=== PATIENT | male | born 1940 | race Caucasian/White ===

== ENCOUNTER → 2018-12-29 16:07 | Outpatient (CLI) | payer MEDICARE, SELFPAY ==
--- NOTE | 2018-12-29 16:13 | MRI_ITS ---
STUDY: MRI CERVICAL SPINE WITHOUT CONTRAST REASON FOR EXAM: Male, 78 years old. Stenosis TECHNIQUE: Standardized fat and water weighted pulse sequences were obtained in the sagittal and axial planes. COMPARISON: None FINDINGS: Craniocervical junction and cervical spine are intact and aligned with normal marrow and paraspinal soft tissues. There are mild age-appropriate disc and endplate degenerative changes. There is mild spondylotic cord compression at C3-C4 and C5-C6. Remainder of the levels have patent canal. There is no high-grade foraminal stenosis. Spinal cord is normal in size and signal with minor flattening of the compressing levels. MRI/Spine Cervical (Routine) IMPRESSION: 1. Mild cord compression at C3-C4 and C5-C6. Electronically Signed: Ngoc Hebert, at 18:02 EDT Tel , Service support ,
== END ==
PROVIDERS: Family Provider Family Medicine; PCP Family Medicine; Referring Provider Psychiatry & Neurology Neurology; Visit Provider Psychiatry & Neurology Neurology
DX: M48.02 Spinal stenosis, cervical region (principal)
CPT/HCPCS: 72141

== ENCOUNTER 2019-03-04 17:33 | Emergency (ER) | payer MEDICARE, SELFPAY ==
[2019-01-21 14:16] VITALS: BMI 28.7
[2019-03-04 17:37] VITALS: BP 142/100; PULSE 56; RESP 17; TEMP 36.1; O2SAT 99; BMI 27.3
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
== END 2019-03-04 18:25 | disposition home or self-care (01) ==
PROVIDERS: Emergency Provider Emergency Medicine; Family Provider Family Medicine; PCP Family Medicine
DX: S40.021A Contusion of right upper arm, initial encounter (principal); V43.52XA Car driver injured in collision with other type car in traffic accident, initial encounter; Y92.410 Unspecified street and highway as the place of occurrence of the external cause; E78.5 Hyperlipidemia, unspecified; I10 Essential (primary) hypertension; I25.10 Atherosclerotic heart disease of native coronary artery without angina pectoris; K21.9 Gastro-esophageal reflux disease without esophagitis; Z87.891 Personal history of nicotine dependence; Z90.49 Acquired absence of other specified parts of digestive tract; D69.6 Thrombocytopenia, unspecified
CPT/HCPCS: 99282

== ENCOUNTER 2021-12-18 15:48 | Emergency (ER) | payer MEDICARE, SELFPAY ==
[2021-12-18 15:49] VITALS: BP 137/86; PULSE 83; RESP 16; TEMP 37.2; O2SAT 98; BMI 28.1
--- NOTE | 2021-12-18 16:05 | EKG12_ITS ---
Test Reason : CP Blood Pressure : / mmHG Vent. Rate : 078 BPM Atrial Rate : 078 BPM P-R Int : 140 ms QRS Dur : 100 ms QT Int : 396 ms P-R-T Axes : 000 188 156 degrees QTc Int : 451 ms Suspect arm lead reversal, interpretation assumes no reversal Sinus rhythm with occasional Premature ventricular complexes Right superior axis deviation Inferior infarct , possibly acute ACUTE AL / STEMI Consider right ventricular involvement in acute inferior infarct Abnormal ECG Recommend Repeat ECG Confirmed by VI FLYNN, NATE ([id number]), newspaper or periodical editor PERRI CHACON ([id number]) on 12/20/2021 10:59:04 AM Referred By: YONG Confirmed By:NATE LEBRON MD
[2021-12-18 16:09] VITALS: RESP 18
[2021-12-18] MEDS: Aspirin 81 MG TAB.CHEW 324 MG PO (16:09)
--- NOTE | 2021-12-18 16:11 | RAD_ITS ---
STUDY: X-RAY CHEST REASON FOR EXAM: Male, 81 years old. chest pain TECHNIQUE: AP portable COMPARISON: None. FINDINGS: The lungs are clear and expanded. There is no demonstrated pleural abnormality. Normal size heart. Normal mediastinum and kelsea. Normal visualized pulmonary arteries. Normal visualized aortic arch and descending thoracic aorta. Dorsal spine demonstrates degenerative change. Normal visualized ribs, clavicles, and shoulders. Small hiatal hernia is noted There is no demonstrated abnormality of the visualized soft tissue structures of the upper abdomen. RAD/Chest 1 View (Portable) IMPRESSION: No acute cardiopulmonary pathology. Electronically Signed: Wood Nascimento MD at 16:37 EDT ,
--- NOTE | 2021-12-18 16:11 | EX.ED.DYSGE1 ---
HPI History of Present Illness Chief Complaint: General Illness Informant: patient Onset/Context/Timing Onset: Today and Yesterday Context: Gradual Onset Timing: Continuous Current Severity: Mild Maximum Severity: Mild Narrative Narrative: 81-year-old male history of prior inferior [place] . Also history of reflux, stomach cancer. Denies any history of DVT or PE. No recent travel, surgery or immobilization. No leg pain or swelling. No hemoptysis. Pain is not pleuritic. Describes the pain as a tightness across the anterior chest. Does not radiate to his arm, neck or jaw. Not associated with diaphoresis or shortness of breath. He has had nausea and vomiting x2. Pain began yesterday around 4 PM. He has had no recent exertional chest pain or exertional dyspnea. Prior similar symptoms: Yes Recent Illness/Hospitalization: No PFSH [facility] Medical History (Updated 12/18/21 @ 18:[address] 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) Premature ventricular contractions Thrombocytopenia Home Medications simvastatin 40 mg tablet 40 mg PO QHS 05/29/14 [History Last Taken 12/04/16 22:00 40 MG] latanoprost 0.005 % eye drops 1 drp EACH EYE QHS 12/06/16 [History Last Taken 12/05/16 22:00 1 DROP] cyclobenzaprine 5 mg tablet 5 mg PO QHS 01/17/19 [History Last Taken Unknown] hydroxyzine HCl 25 mg tablet 25 mg PO Q6H PRN 01/17/19 [History Last Taken Unknown] lisinopril 20 mg tablet 20 mg PO DAILY 01/17/19 [History Last Taken Unknown] nitroglycerin 0.4 mg sublingual tablet 0.4 mg sublingual Q5-15M 01/17/19 [History Last Taken Unknown] omeprazole 40 mg capsule,delayed release 40 mg PO DAILY 01/17/19 [History Last Taken Unknown] oxycodone 5 mg tablet 5 mg PO Q4H PRN PRN Moderate Pain (pain scale 4-5) 01/17/19 [History Last Taken Unknown] zolpidem 5 mg tablet (Ambien) 5 mg PO QHS 01/17/19 [History Last Taken Unknown] Allergy/AdvReac Type Severity Reaction Status Date / Time vicryl sutures AdvReac unknown Uncoded 12/18/21 15:49 Surgical History History of cholecystectomy History of left heart catheterization (1994) Social History Smoking Status: Never smoker ROS ROS ED ROS Narrative Denies recent illness of nausea and vomiting. Review of Systems ROS Unobtainable: Denies due to encephalopathy Constitutional Constitutional ED: Denies chills or fever(s) Eyes Eyes: Denies blurry vision ENT ENT ED: Denies ear pain Cardiovascular Cardiovascular: Reports chest pain; Denies palpitations or racing heartbeat Respiratory/Chest Respiratory/Chest: Denies cough or dyspnea Gastrointestinal Gastrointestinal: Reports nausea and vomiting; Denies abdominal pain, constipation, diarrhea or melena Genitourinary Genitourinary ED: Denies dysuria or hematuria Musculoskeletal Musculoskeletal: Denies arthralgias Integumentary Denies abscess Neurologic Neurologic: Denies headache(s) Psychiatric Psychiatric: Denies anxiety or depression Endocrine Endocrinology: Denies cold intolerance Hematologic/Lymphatic Hematologic/Lymphatic: Reports none Allergic/Immunologic Allergic/Immunologic ED: Denies mouth swelling or tongue swelling EXAM Physical Exam Narrative Exam Narrative: Sign 11-year-old male no acute distress. Vital signs stable afebrile. Pulse ox 90% on room air no signs hypoxia. H EENT exam unremarkable. Neck nontender no JVD. Lungs clear to auscultation bilaterally. Heart regular rhythm rate about 80 no murmur. Chest were nontender. Abdomen soft nontender. Moving all 4 extremities. Calves nontender that edema or cords. Equal symmetrical radial pulses. Neurologically is awake and alert with no focal motor deficits. Const Vital Signs: 12/18/21 15:49 12/18/21 16:09 12/18/21 16:11 Temperature 98.9 F Temperature Source Temporal Pulse Rate 83 Respiratory Rate 16 18 Respiratory Effort Normal Non-Labored Blood Pressure 137/86 H Blood Pressure Mean 103 Pulse Ox 98 Oxygen Delivery Method Room Air 12/18/21 18:14 Temperature Temperature Source Pulse Rate 69 Respiratory Rate 12 Respiratory Effort Blood Pressure 141/76 H Blood Pressure Mean 97 Pulse Ox 96 Oxygen Delivery Method Room Air Positive well nourished and well developed; Negative for obese, cachectic, contractures or unkempt General Appearance ED: well developed and NAD; Negative for unkempt, cachectic, contractures, cyanotic or diaphoretic Nutritional Appearance: Negative for cachectic or obese HEENT Reports moist mucous membranes; Denies dry mucous membranes Negative for trauma Mouth ED: No dry mucous membranes Mouth: No dry mucous membranes Eyes PERRL and EOMs intact bilaterally General Eye ED: Negative for pale conjunctiva or scleral icterus Neck no lymphadenopathy, supple and no JVD General: Negative for tenderness Lymph Lymphatic: Negative for other Chest Wall inspection of chest normal and palpation of chest normal Chest: Negative for other Resp normal respiratory effort and clear to auscultation bilaterally Effort and Inspection: Negative for retractions Auscultation: Negative for rales, rhonchi or wheezes Cardio regular rate, regular rhythm, S1 normal heart sound, S2 normal heart sound and no murmurs Palpation: Negative for palpable S3 Rate: Negative for bradycardia Rhythm: Negative for abnormal rhythm GI normal to inspection, nondistended, normoactive bowel sounds, non-tender, non-distended and no masses Inspection: Negative for abdominal distention Auscultation: normoactive bowel sounds Palpation: soft; Negative for tender or guarding Back/Spine no CVA tenderness General Back: Negative for CVA tenderness Cervical Spine: Negative for cervical spine tenderness Thoracic Spine / Upper Back: Negative for thoracic spinal tenderness Lumbar Spine / Lower Back: Negative for lumbar spinal tenderness Extremity normal to inspection General Extremety ED: Negative for edema or tenderness General Extremity: Negative for edema Neuro oriented x3 and CN's II-XII intact bilaterally Sensorium / Orientation: alert; Negative for orientation impaired Motor Exam: strength 5/5 throughout Psych Appearance: Negative for unkempt Attitude: No agitated Mood & Affect: Negative for depressed or anxious Skin no rashes or lesions noted and no wounds General Skin Exam: Negative for elasticity normal Lesions: No lesion noted Rashes: No rashes noted Trauma: Negative for abrasion Wounds: Negative for wounds noted MDM MDM MDM Narrative Medical decision making narrative: 71-year-old with nonexertional chest pain. Exam benign. Not reproducible. Undergo cardiac work-up. Cardiac etiology versus reflux versus other causes of chest pain. Clinically has no risk factors or prior history of DVT or PE. Repeat exam patient doing well. This pain was nonexertional. He will be given a GI cocktail and Protonix. Second troponin is pending. He will be discharged home with outpatient follow-up. Continue his reflux medications at home. Lab Data Attestation: I reviewed the patient's lab results. Lab results narrative: CBC White count 10.9 H&H 14.5 and 44. Platelets slightly low 130,000. Electrolytes potassium 5.4 gap is 6 BUN and creatinine are 21.3. Troponin is normal at 14. Labs: Laboratory Results - last 24 hr 12/18/21 12/18/21 16:15 16:15 WBC 10.9 RBC 4.38 L Hgb 14.5 Hct 44.1 MCV 100.7 H MCH 33.1 H MCHC 32.9 RDW Std Deviation 45.4 H RDW Coeff of Corinne 12.2 Plt Count 130 L MPV 9.5 Immature Gran % (Auto) 0.500 Neut % (Auto) 78.3 H Lymph % (Auto) 13.3 L [place] % (Auto) 7.4 Eos % (Auto) 0.3 Baso % (Auto) 0.2 Absolute Neuts (auto) 8.6 H Absolute Lymphs (auto) 1.45 Nucleated RBC % 0 Sodium 139 Potassium 5.4 H Chloride 108 H Carbon Dioxide 25.0 Anion Gap 6 BUN 28 H Creatinine 1.30 Estim Creat Clear Calc 44.58 Est GFR (MDRD) Af Amer 68 Est GFR (MDRD) Non-Af 57 L BUN/Creatinine Ratio 21.5 H Glucose 139 H Calcium 9.5 Troponin I High Sens 14 Radiography Chest X-Ray - ED: 1 View, Read by ED Physician, Normal, Heart, Lungs, Mediastinum, Bony Structures, No Acute Disease and Chronic Changes Diagnostic Testing: Clinical Impression(s) from Imaging Studies Chest X-Ray 12/18/21 16:11 IMPRESSION: No acute cardiopulmonary pathology. Electronically Signed: Wood Nascimento MD at 16:37 EDT , Chest x-ray, portable, single view interpreted myself and radiologist shows no acute abnormality. Patient normal cardiac silhouette. May be normal mediastinum. Rhythm Strip Rhythm Strip: Sinus Rhythm Rate: 78 Ectopy: None EKG Initial EKG: Attestation: I personally reviewed and interpreted this EKG as follows: Interpretation: Sinus Rhythm and No Acute Injury Pattern Comments: Normal sinus rhythm rate of 78. There is minimal ST elevation in leads II, III, aVF which has been seen on prior EKG from November 2016. Patient has a history of a prior [place]. There is no reciprocal changes. I do not think this is acute. This was seen on a prior EKG. Prior EKG tracings: available for review Prior: Unchanged Discharge Plan Triage Chief Complaint: General Illness ED Provider: Denny Sepulveda Dx/Rx/DC Orders Clinical Impression: Chest pain, History of [place] (myocardial infarction), Hx of esophageal reflux Instructions: ED Chest Pain, Uncertain Cause Prescriptions: No Action lisinopril 20 mg tablet 20 mg PO DAILY hydroxyzine HCl 25 mg tablet 25 mg PO Q6H PRN zolpidem [Ambien] 5 mg tablet 5 mg PO QHS cyclobenzaprine 5 mg tablet 5 mg PO QHS nitroglycerin 0.4 mg tablet, sublingual 0.4 mg SUBLINGUAL Q5-15M omeprazole 40 mg capsule,delayed release(DR/EC) 40 mg PO DAILY oxycodone 5 mg tablet 5 mg PO Q4H PRN PRN (Reason: Moderate Pain (pain scale 4-5)) Label Comments: pain simvastatin 40 MG tablet 40 mg PO QHS Label Comments: cholesterol latanoprost 1 DROP bottle 1 drp EACH EYE QHS Label Comments: EYE DROPS Primary Care Provider: Luis Antonio Sheehan Referrals: Luis Antonio Sheehan MD [Primary Care Provider] - 3-5 Days if not improving Activity Restrictions/Additional Instructions: Use your reflux medication at home. Follow-up with your doctor if not improving or return if feeling worse. Your labs, x-ray and EKG were unremarkable. Disposition Disposition: Home, Self Care
[2021-12-18 16:27] LABS: Absolute Lymphocyte Count 1.45 X10^3/uL (0.83-4.51); Absolute Neutrophil Count 8.6 X10^3/uL (2.0-7.7); Basophil# 0.02 X10^3/uL; Basophil% 0.2 % (0-1); Eosinophil# 0.03 X10^3/uL; Eosinophils% 0.3 % (0-5); Hematocrit 44.1 % (40-54); Hemoglobin 14.5 g/dL (13.0-16.5); Lymphocyte # 1.45 X10^3/ul (0.83-4.51); Lymphocyte % 13.3 % (19-41); Mean Corp Hgb Conc 32.9 g/dL (32-36); Mean Corpuscular Hgb 33.1 pg (27.0-32.0); Mean Corpuscular Volume 100.7 fL (80-94); Mean Platelet Vol. 9.5 fl (6.2-12.0); Monocyte# 0.81 X10^3/uL; Monocyte% 7.4 % (0-10); NRBC Flagged by Analyzer 0 % (0-5); Neutrophil # 8.55 X10^3/uL (2.7-7.7); Neutrophil % 78.3 % (47-70); Platelet Count 130 K/mm3 (150-450); RBC Distribution Width CV 12.2 % (11.6-14.6); RBC Distribution Width SD 45.4 fl (35.1-43.9); Red Blood Count 4.38 M/mm3 (4.6-6.2); White Blood Count 10.9 K/mm3 (4.4-11.0)
[2021-12-18 16:48] LABS: Anion Gap 6 (5-15); BUN 28 mg/dL (7-18); BUN/Creat Ratio 21.5 RATIO (10-20); Calcium,Total 9.5 mg/dL (8.5-10.1); Chloride 108 mmol/L (98-107); EST Glomerular Filtration Rate 57 mL/min (>60); Est Glom Filt Rate - Afr Amer 68 mL/min (>60); Estimated Creatinine Clearance 44.58 ml/min; Glucose 139 mg/dL (74-106); Potassium 5.4 mmol/L (3.5-5.1); Sodium Level 139 mmol/L (136-145); Troponin-I HS (w/2H Reflex) 14 pg/mL (3.0-78.0)
[2021-12-18 18:14] VITALS: BP 141/76; PULSE 69; RESP 12; O2SAT 96
[2021-12-18 18:18] LABS: Reflex Troponin-HS? (from REC) Y
[2021-12-18] MEDS: Pantoprazole Sodium 40 MG Tablet PO (18:41)
[2021-12-18] MEDS: Mag Hydrox/Al Hydrox/Simeth 30 ML UDC PO (18:41)
[2021-12-18 18:44] VITALS: BP 111/74
[2021-12-18 19:07] LABS: Troponin-I HS 12 pg/mL (3.0-78.0)
== END 2021-12-18 18:44 | disposition home or self-care (01) ==
PROVIDERS: Emergency Provider Emergency Medicine; PCP Family Medicine; Visit Provider Emergency Medicine
DX: R07.9 Chest pain, unspecified (principal); I25.10 Atherosclerotic heart disease of native coronary artery without angina pectoris; I25.2 Old myocardial infarction
CPT/HCPCS: 71045; 80048; 84484; 85025; 93005; 99285; A4216

== ENCOUNTER 2024-09-11 17:59 | Emergency (ER) | payer MEDICARE, SELFPAY ==
[2024-09-11 18:00] VITALS: BP 135/84; PULSE 84; RESP 16; TEMP 36.4; O2SAT 98; BMI 24.8
--- NOTE | 2024-09-11 18:30 | RAD_ITS ---
PROCEDURE: CHEST 1 VIEW (PORTABLE) 09/11/2024 REASON FOR EXAM: CHEST PAIN TECHNIQUE: Frontal view of the chest. COMPARISON: Chest radiograph 12/18/2021. FINDINGS: Hardware: None. Heart: The heart size is normal. Lungs: No focal consolidation, pleural effusion or pneumothorax. Bones: Degenerative changes are identified within the thoracic spine. RAD/Chest 1 View (Portable) IMPRESSION: Negative Chest. Reading Location: [id number]
[2024-09-11 18:40] LABS: Absolute Lymphocyte Count 2.68 X10^3/uL (0.83-4.51); Absolute Neutrophil Count 5.1 X10^3/uL (2.0-7.7); Basophil# 0.04 X10^3/uL; Basophil% 0.4 % (0-1); Eosinophil# 0.25 X10^3/uL; Eosinophils% 2.7 % (0-5); Hemoglobin 12.1 g/dL (13.0-16.5); Lymphocyte # 2.68 X10^3/ul (0.83-4.51); Lymphocyte % 29.5 % (19-41); Mean Corp Hgb Conc 33.6 g/dL (32-36); Mean Corpuscular Hgb 32.3 pg (27.0-32.0); Mean Platelet Vol. 9.3 fl (6.2-12.0); Monocyte# 0.97 X10^3/uL; Monocyte% 10.7 % (0-10); NRBC Flagged by Analyzer 0 % (0-5); Neutrophil # 5.14 X10^3/uL (2.7-7.7); Neutrophil % 56.5 % (47-70); Platelet Count 175 K/mm3 (150-450); RBC Distribution Width CV 12.4 % (11.6-14.6); RBC Distribution Width SD 43.1 fl (35.1-43.9); Red Blood Count 3.75 M/mm3 (4.6-6.2); White Blood Count 9.1 K/mm3 (4.4-11.0)
[2024-09-11] MEDS: Aspirin 81 MG TAB.CHEW 324 MG PO (18:41)
[2024-09-11 18:56] LABS: Anion Gap 13 (5-15); BUN 28 mg/dL (4-19); BUN/Creat Ratio 23.4 RATIO (10-20); Calcium,Total 9.4 mg/dL (7.6-11.0); Carbon Dioxide 19.4 mmol/L (21.0-32.0); Chloride 103 mmol/L (98-108); Creatinine, Serum 1.19 mg/dL (0.70-1.20); EST Glomerular Filtration Rate 61 (>60); Glucose 135 mg/dL (70-99); Potassium 4.3 mmol/L (3.3-5.1); Sodium Level 135 mmol/L (133-145); Troponin T High Sensitivity 43 ng/L (<=22)
--- NOTE | 2024-09-11 18:56 | ED.VIS.CHEST ---
HPI History of Present Illness Chief Complaint: Chest Pain Informant: patient and spouse/S.O. Narrative Narrative: Waxing waning chest pressure for last 4 to 5 weeks. No dyspnea no nausea no diaphoresis. Reports abdominal cramping weight loss for last 5 weeks. History of gastric cancer 2017 cannot tell me the specific type he was seen at [facility] Dr. Tipton who retired. He had radiation and chemotherapy at that time was told he was cancer free. Denies any black or bloody stools. Denies vomiting or diarrhea. Denies recent travel or surgeries. No history of PE or DVT. He states he had a heart attack in the 1980s reported had a heart catheter noting collaterals. No intervention. Occasional cough. Hypertension hyperlipidemia. CVD Risk Factors: Positive for Hypertension and Hypercholesterolemia; Negative for Diabetes, Family History 1' </=55 or Smoking PE Risk Factors: Positive for Cancer; Negative for Recent Travel/Surgery, Recent Immobilization or Prior DVT or PE [facility] Medical History (Updated 09/11/24 @ 21:[address] 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) Essential (primary) hypertension HLD (hyperlipidemia) Home Medications ?Medication ?Instructions ?Recorded ?Last Taken ?Type simvastatin 40 mg tablet 40 mg PO QHS 05/29/14 12/04/16 22:00 History 40 MG latanoprost 0.005 % eye drops 1 drp EACH EYE QHS 12/06/16 12/05/16 22:00 History 1 DROP cyclobenzaprine 5 mg tablet 5 mg PO QHS 01/17/19 Unknown History hydroxyzine HCl 25 mg tablet 25 mg PO Q6H PRN 01/17/19 Unknown History lisinopril 20 mg tablet 20 mg PO DAILY 01/17/19 Unknown History nitroglycerin 0.4 mg sublingual 0.4 mg sublingual Q5-15M 01/17/19 Unknown History tablet omeprazole 40 mg capsule,delayed 40 mg PO DAILY 01/17/19 Unknown History release oxycodone 5 mg tablet 5 mg PO Q4H PRN PRN Moderate Pain 01/17/19 Unknown History (pain scale 4-5) zolpidem 5 mg tablet (Ambien) 5 mg PO QHS 01/17/19 Unknown History Allergy/AdvReac Type Severity Reaction Status Date / Time suture AdvReac NEEDS Verified 09/11/24 18:01 FOLLOW-UP Surgical History History of left heart catheterization (1994) History of cholecystectomy Social History Smoking Status: Never smoker ROS ROS ED Constitutional Constitutional ED: Reports weight loss; Denies chills, fever(s) or sweats ENT ENT ED: Denies sore throat Cardiovascular Cardiovascular: Reports chest pain; Denies leg edema, palpitations or racing heartbeat Respiratory/Chest Respiratory/Chest: Denies cough, dyspnea or dyspnea on exertion Gastrointestinal Gastrointestinal: Reports abdominal pain; Denies diarrhea, nausea or vomiting Genitourinary Genitourinary ED: Denies dysuria, hematuria or urinary frequency Musculoskeletal Musculoskeletal: Denies back pain, extremity pain or neck pain Integumentary Denies rash or wounds Neurologic Neurologic: Denies headache(s), paresthesias or weakness EXAM Physical Exam Const Vital Signs: 09/11/24 17:59 09/11/24 18:00 09/11/24 18:23 Temperature 97.5 F L Temperature Source Oral Pulse Rate 84 Respiratory Rate 16 Respiratory Effort Normal Non-Labored Blood Pressure 135/84 H Blood Pressure Mean 101 Pulse Ox 98 Oxygen Delivery Method Room Air Room Air 09/11/24 19:00 09/11/24 20:00 09/11/24 21:00 Temperature Temperature Source Pulse Rate 70 56 L 56 L Respiratory Rate 18 16 18 Respiratory Effort Blood Pressure 103/70 112/60 117/64 Blood Pressure Mean 81 77 81 Pulse Ox 99 100 100 Oxygen Delivery Method Room Air Room Air Room Air 09/11/24 21:40 Temperature 98.5 F Temperature Source Pulse Rate 58 L Respiratory Rate 18 Respiratory Effort Blood Pressure 128/67 H Blood Pressure Mean 87 Pulse Ox 100 Oxygen Delivery Method Positive well nourished and well developed General Appearance ED: well developed and NAD HEENT Reports moist mucous membranes normocephalic and atraumatic Eyes General Eye ED: Yes normal appearance of both eyes Neck full ROM Chest Wall Chest: Negative for tenderness Resp normal respiratory effort and normal air movement Effort and Inspection: symmetric chest movement; Negative for respiratory distress Cardio regular rate, regular rhythm and no murmurs Peripheral Pulses: pulses 2+ throughout GI normal to inspection, nondistended, normoactive bowel sounds and non-tender Palpation: Negative for guarding or rebound tenderness present Extremity normal to inspection General Extremety ED: Negative for edema or tenderness General Extremity: Negative for edema Neuro oriented x3 and no sensory deficits noted Sensorium / Orientation: awake and alert Skin no rashes or lesions noted and no wounds Heart Score History: Slightly/Non-Suspicious ECG: Normal Age: >/= 65 years Risk Factors: >/= 3 Risk Factors or History of CAD Troponin: >1 - <3 Normal Limit Score: 5 MDM MDM MDM Narrative Medical decision making narrative: Interventions / MDM: Differential diagnosis: Chest pain, history of large B-cell lymphoma gastrum Diagnosis considered but do not suspect: ACS however EKG with no ischemic findings cardiac enzymes negative per algorithm. My EKG interpretation: Sinus rate of 74, no ST changes. T wave inversions inferior leads. QTc 459. Similar findings from November 2021. Imaging independently reviewed and interpreted by myself: 1 view chest x-ray: No acute process. CT chest abdomen pelvis with IV contrast: Degenerative changes, no neoplastic concerns or findings. Also read by radiology. External documents reviewed: Large B-cell lymphoma gastric noted from records. Test considered but not ordered:N/A ED course: EKG chronic changes. Cardiac workup initiated. Reporting weight loss abdominal pain history of gastric cancer. CT chest abdomen pelvis IV contrast for further evaluation. 1 view chest x-ray initially obtained normal. 2131: CT chest abdomen pelvis negative for any acute process. No lesions noted per radiology. Troponin 43 with down to 41. 2 weeks of waxing waning symptoms, lower suspicion for ACS as enzymes are trending down. Do not feel third troponin is necessary. Reassured on findings because follow-up with his PCP for stress test. He has had decreased appetite with his cancer history. He has seen Dr. Jerome general surgery for endoscopies. He will follow-up with her as an outpatient. Strict return precautions. All questions were answered. Re-evaluation: stable Disposition discussed with patient/family/significant other: Patient and significant other Case discussed with consulting clinician: N/A This note was generated with [employer] dictation software. It may contain incorrect words, spelling, and punctuation that were not noted in checking the note before signing. Lab Data Attestation: I reviewed the patient's lab results. Labs: Laboratory Results - last 24 hr 09/11/24 09/11/24 18:10 20:28 WBC 9.1 RBC 3.75 L Hgb 12.1 L Hct 36.0 L MCV 96.0 H MCH 32.3 H MCHC 33.6 RDW Std Deviation 43.1 RDW Coeff of Corinne 12.4 Plt Count 175 MPV 9.3 Immature Gran % (Auto) 0.200 Neut % (Auto) 56.5 Lymph % (Auto) 29.5 Hooker % (Auto) 10.7 H Eos % (Auto) 2.7 Baso % (Auto) 0.4 Absolute Neuts (auto) 5.1 Absolute Lymphs (auto) 2.68 Nucleated RBC % 0 Sodium 135 Potassium 4.3 Chloride 103 Carbon Dioxide 19.4 L Anion Gap 13 BUN 28 H Creatinine 1.19 Estim Creat Clear Calc 46.30 L Est GFR (MDRD) Non-Af 61 BUN/Creatinine Ratio 23.4 H Glucose 135 H Calcium 9.4 Troponin T High Sens 43 H Troponin T Hi Sens 2 Hr 41 H Radiography Diagnostic Testing: Clinical Impression(s) from Imaging Studies Chest X-Ray 09/11/24 18:30 IMPRESSION: Negative Chest. Reading Location: [facility] Chest/Abdomen/Pelvis CT 09/11/24 19:10 IMPRESSION: Probable degenerative changes with subchondral lytic change in the left anterior sacroiliac joint. No neoplastic findings in the remainder of the chest, abdomen and pelvis. Reading Location: [facility] Discharge Plan Triage Chief Complaint: Chest Pain ED Provider: Ferdinand Queen Dx/Rx/DC Orders Clinical Impression: Chest pain, History of diffuse large B-cell lymphoma Instructions: ED Chest Pain, Uncertain Cause Prescriptions: No Action lisinopril 20 mg tablet 20 mg PO DAILY hydroxyzine HCl 25 mg tablet 25 mg PO Q6H PRN zolpidem [Ambien] 5 mg tablet 5 mg PO QHS cyclobenzaprine 5 mg tablet 5 mg PO QHS nitroglycerin 0.4 mg tablet, sublingual 0.4 mg SUBLINGUAL Q5-15M omeprazole 40 mg capsule,delayed release(DR/EC) 40 mg PO DAILY oxycodone 5 mg tablet 5 mg PO Q4H PRN PRN (Reason: Moderate Pain (pain scale 4-5)) Patient Comments: pain simvastatin 40 MG tablet 40 mg PO QHS Patient Comments: cholesterol latanoprost 1 DROP bottle 1 drp EACH EYE QHS Patient Comments: EYE DROPS Primary Care Provider: Luis Antonio Sheehan Referrals: Alycia Jerome MD [Med Staff - Active Staff] - 1-2 Weeks Luis Antonio Sheehan MD [Primary Care Provider] - 3-5 Days Activity Restrictions/Additional Instructions: Cardiac workup negative. CT chest abdomen pelvis negative for any masses. Follow-up with your PCP for possible stress test. Follow-up with Dr. Jerome for continued screening with your gastric cancer history. Print Language: Vietnamese Disposition Disposition: Home, Self Care Discharge Date/Time: 09/11/24 21:41
[2024-09-11 19:00] VITALS: BP 103/70; PULSE 70; RESP 18; O2SAT 99
--- NOTE | 2024-09-11 19:10 | CT_ITS ---
PROCEDURE: CT CHEST, ABD, PEL W/CONTRAST 09/11/2024 REASON FOR EXAM: PAIN, WEIGHT LOSS, HX OF GASTRIC CA TECHNIQUE: Chest, abdomen and pelvis CT with intravenous contrast. Coronal and Sagittal reconstruction series were provided. One or more dose reduction techniques were used (e.g., Automated exposure control, adjustment of the mA and/or kV according to patient size, use of iterative reconstruction technique. 100 cc Isovue 370 utilized. COMPARISON: None available FINDINGS: Imaging of the lung demonstrates no suspicious masses. No areas of consolidation or significant pleural fluid. No suspicious pulmonary nodules. There is a moderate-sized hiatal hernia. No pericardial fluid is seen. There is dense coronary artery calcification. No thoracic aneurysm. No mediastinal or hilar lymphadenopathy. Axilla unremarkable. No osseous destructive changes. There is no thoracic compression deformity or subluxation. There are liver and splenic cysts present. The gallbladder is surgically absent. No pancreatic mass lesion is seen. No renal masses documented. There is no hydronephrosis. There is no free air or free fluid. There is no bowel obstruction. There is sigmoid diverticulosis. There is no pelvic or retroperitoneal adenopathy. No lytic or blastic lesions identified within the lumbar spine. Questionable slightly erosive changes at the anterior aspect of the left SI joint. With adjacent sclerosis, this is favored to be degenerative rather than neoplastic. CT/CT Chest, Abd, Pel w/Contrast IMPRESSION: Probable degenerative changes with subchondral lytic change in the left anterio r sacroiliac joint. No neoplastic findings in the remainder of the chest, abdomen and pelvis. Reading Location: [facility]
[2024-09-11 20:00] VITALS: BP 112/60; PULSE 56; RESP 16; O2SAT 100
[2024-09-11 21:00] VITALS: BP 117/64; PULSE 56; RESP 18; O2SAT 100
[2024-09-11 21:17] LABS: Troponin T High Sens 2 HR 41 ng/L (<=22)
[2024-09-11 21:40] VITALS: BP 128/67; PULSE 58; RESP 18; TEMP 36.9; O2SAT 100
== END 2024-09-11 21:41 | disposition home or self-care (01) ==
PROVIDERS: Emergency Provider Emergency Medicine; PCP Family Medicine; Visit Provider Emergency Medicine
DX: R07.9 Chest pain, unspecified (principal); C85.10 Unspecified B-cell lymphoma, unspecified site; I10 Essential (primary) hypertension; I25.10 Atherosclerotic heart disease of native coronary artery without angina pectoris; R94.31 Abnormal electrocardiogram [ECG] [EKG]; Z90.49 Acquired absence of other specified parts of digestive tract; I25.2 Old myocardial infarction; E78.5 Hyperlipidemia, unspecified; Z85.028 Personal history of other malignant neoplasm of stomach
CPT/HCPCS: 71045; 71260; 74177; 80048; 84484; 85025; 93005; 99283; Q9967; A4216